=== PATIENT | female | born 1985 | race Hispanic/Latino ===

== ENCOUNTER 2021-05-28 15:30 | Inpatient (IN) | payer OTHER ==
[~2021-05-28 15:30] MED LIST: Bupivacaine/Epinephrine 0.25% 30 ML VIAL ONE
[2021-05-28] MEDS ORDERED: Promethazine HCl 25 MG/ML VIAL IM PRN ×2 (16:01→19:56)
[2021-05-28] MEDS ORDERED: Ondansetron PF 4 MG/2 ML Vial IVP PRN ×2 (16:01→19:56)
[2021-05-28] MEDS ORDERED: Misoprostol 200 MCG TAB PR PRN (16:01)
[2021-05-28] MEDS ORDERED: Ibuprofen 800 MG TAB PO PRN (16:01)
[2021-05-28] MEDS ORDERED: Diphenoxylate HCl/Atropine Tablet PO PRN (16:01)
[2021-05-28] MEDS ORDERED: Butorphanol Tartrate 1 MG/ML VIAL SLOW IVP PRN (16:01)
[2021-05-28] MEDS ORDERED: hydrALAZINE 20 MG/ML VIAL SLOW IVP PRN (16:01)
[2021-05-28] MEDS ORDERED: HYDROcodone/Acetaminophen 5/325 mg Tablet PO PRN (16:01)
[2021-05-28] MEDS ORDERED: Acetaminophen 500 MG TAB PO PRN (16:01)
[2021-05-28] MEDS ORDERED: Lidocaine 1% (PF) 30 ML VIAL SC PRN (16:01)
[2021-05-28] MEDS ORDERED: NS w/ Oxytocin 30 units 500 ML IV SCH ×2 (16:15)
[2021-05-28 16:16] VITALS: BMI 40.6
[2021-05-28 16:43] LABS: Creatinine, Urine 61.25 mg/dL (47-110)
[2021-05-28] MEDS: Lactated Ringer's 1,000 ML IV SCH (16:45)
[2021-05-28] MEDS: Magnesium Sulfate 20 gm/500 ml 20 GM/500 ML BAG ONE ×2 (17:02→17:03)
[2021-05-28 17:08] LABS: Hemoglobin 10.9 g/dL (12.0-15.5); Mean Corpuscular HGB CONC 32.5 g/dL (32.0-36.0); Mean Corpuscular Hemoglobin 26.9 pg (27.0-33.0); Mean Corpuscular Volume 82.7 fl (81.6-98.3); Mean Platelet Volume 9.3 fl (7.4-10.4); Platelet Count 341 10x3/uL (150-450); RBC Distribution Width 14.6 % (11.5-14.5); Red Blood Cell (RBC) Count 4.05 10x6/uL (3.90-5.03); White Blood Cell (WBC) Count 9.4 10x3/uL (3.5-10.5)
[2021-05-28 17:24] LABS: ALT (SGPT) 30 U/L (8-55); AST (SGOT) 26 U/L (5-34); Albumin 3.3 g/dL (3.5-5.0); Alkaline Phosphatase 121 U/L (40-110); Anion Gap 14 mmol/L (10-20); BUN (Urea Nitrogen) 6 mg/dL (7.0-18.7); Bilirubin, Total 0.3 mg/dL (0.2-1.2); Calc. Creatinine Clearance 223 mL/min (70-130); Calcium 9.5 mg/dL (7.8-10.44); Carbon Dioxide 22 mmol/L (22-29); Chloride 106 mmol/L (98-107); Globulin 2.6 g/dL (2.4-3.5); Glucose 117 mg/dL (70-105); Potassium 3.8 mmol/L (3.5-5.1); Protein, Total 5.9 g/dL (6.0-8.3); Sodium 138 mmol/L (136-145)
[2021-05-28 17:43] LABS: Hep B Surf Ag Non-Reactive S/CO (NonReactive)
[2021-05-28 17:44] LABS: Syphilis Antibody Nonreactive (Nonreactive); Syphilis Antibody Index 0.06 S/CO (<1.00 Non-Reactive)
[2021-05-28 18:01] LABS: HBSAg Index 0.15 S/CO (0-0.99)
[2021-05-28] MEDS ORDERED: Labetalol HCl 100 MG/20 ML VIAL ONE (19:21)
[2021-05-28] MEDS: Labetalol HCl 100 MG/20 ML VIAL SLOW IVP SCH (19:22)
[2021-05-28] MEDS ORDERED: Labetalol HCl 200 MG TAB PO SCH (19:45)
[2021-05-28] MEDS ORDERED: Fentanyl 2 mcg/Bup 0.1% Cadd 100 ML ONE (19:51)
[2021-05-28] MEDS ORDERED: ePHEDrine Sulfate 50 MG/10 ML VIAL SLOW IVP PRN (19:56)
[2021-05-28] MEDS ORDERED: Lactated Ringer's 500 ML IV PRN (19:56)
[2021-05-28] MEDS ORDERED: diphenhydrAMINE 50 MG/ML VIAL IVP PRN (19:56)
[2021-05-28] MEDS ORDERED: Acetaminophen 325 MG TAB PO PRN (19:56)
[2021-05-28] MEDS ORDERED: Naloxone HCl 0.4 mg/ml Vial IVP PRN ×2 (19:56)
[2021-05-28] MEDS ORDERED: Hydrocerin (Eucerin) Cream 120 gm Jar TOP PRN (19:56)
[2021-05-28] MEDS ORDERED: Communication Order-Pharmacy FS SCH (20:00)
[2021-05-28] MEDS ORDERED: Fentanyl 2 mcg/Bupivacaine 0.1% Cassette 100 ML EPIDURAL SCH (20:00)
[2021-05-29 00:27] LABS: SARS-CoV-2 PCR by NAA Not Detected (NotDetected)
[2021-05-29] MEDS ORDERED: Magnesium Sulfate 20 gm/500 ml 20 GM/500 ML BAG ONE (02:42)
[2021-05-29] MEDS ORDERED: Lidocaine 1% (PF) 30 ML VIAL ONE (03:41)
[2021-05-29] MEDS ORDERED: Methylergonovine 0.2 MG/ML VIAL ONE (03:50)
[2021-05-29] MEDS ORDERED: Carboprost 250 MCG/ML AMP ONE (03:50)
[2021-05-29] MEDS ORDERED: Misoprostol 200 MCG TAB ONE (03:50)
[2021-05-29] MEDS: Labetalol HCl 100 MG/20 ML VIAL SLOW IVP SCH (04:22)
[2021-05-29] MEDS ORDERED: Ondansetron PF 4 MG/2 ML Vial IVP PRN (04:35)
[2021-05-29] MEDS ORDERED: Bisacodyl 10 MG SUPP PR PRN (04:35)
[2021-05-29] MEDS ORDERED: Boostrix 0.5 ML (Tdap) VIAL IM ONE (04:35)
[2021-05-29] MEDS ORDERED: Promethazine HCl 25 MG/ML VIAL IM PRN (04:35)
[2021-05-29] MEDS ORDERED: diphenhydrAMINE 25 MG CAP PO PRN (04:35)
[2021-05-29] MEDS ORDERED: Milk Of Magnesia 30 ML UDCUP PO PRN (04:35)
[2021-05-29] MEDS ORDERED: Calcium Gluconate 4.6 MEQ in Sodium Chloride 0.9% 100 ML IVPB PRN (04:35)
[2021-05-29] MEDS ORDERED: Lanolin Ointment 7 GM TUBE TOP PRN (04:35)
[2021-05-29] MEDS ORDERED: Benzocaine-Menthol 82.5 ML CAN TOP PRN (04:35)
[2021-05-29] MEDS: Labetalol HCl 100 MG/20 ML VIAL SLOW IVP PRN ×2 (04:40→22:31)
[2021-05-29] MEDS ORDERED: Magnesium Sulfate 20 gm/500 ml 20 GM/500 ML BAG IVPB SCH (05:00)
[2021-05-29] MEDS ORDERED: NS w/ Oxytocin 30 units 500 ML IV SCH (05:00)
[2021-05-29 05:48] LABS: Magnesium 4.4 mg/dL (1.6-2.6)
[2021-05-29] MEDS: HYDROcodone/Acetaminophen 5/325 mg Tablet PO PRN ×2 (07:46→12:13)
[2021-05-29] MEDS: Ibuprofen 800 MG TAB PO SCH (07:47)
[2021-05-29] MEDS ORDERED: Losartan 25 MG TAB PO SCH (09:00)
[2021-05-29] MEDS ORDERED: Fentanyl 2 mcg/Bup 0.1% Cadd 0 ML ONE (17:06)
[2021-05-29] MEDS: hydrALAZINE 20 MG/ML VIAL SLOW IVP PRN ×2 (19:45→21:54)
[2021-05-30] MEDS: Lactated Ringer's 1,000 ML IV SCH (04:04)
[2021-05-30] MEDS: Ferrous Sulfate 325 MG TAB PO SCH ×2 (07:22→08:39)
[2021-05-30] MEDS: Ibuprofen 800 MG TAB PO SCH ×4 (07:22→21:23)
[2021-05-30] MEDS: Prenatal Vitamin 1 TAB PO SCH ×2 (07:23→08:46)
[2021-05-30] MEDS: Docusate 100 MG CAP PO SCH ×3 (07:23→21:23)
[2021-05-30] MEDS: Losartan Potassium 50 MG TAB PO SCH (08:46)
[2021-05-30] MEDS: hydrALAZINE 20 MG/ML VIAL SLOW IVP PRN ×2 (16:51→17:27)
[2021-05-30] MEDS ORDERED: Labetalol HCl 100 MG/20 ML VIAL SLOW IVP PRN (17:44)
[2021-05-31] MEDS: Ibuprofen 800 MG TAB PO SCH ×3 (05:27→22:31)
[2021-05-31] MEDS: Ferrous Sulfate 325 MG TAB PO SCH (07:35)
[2021-05-31] MEDS: Prenatal Vitamin 1 TAB PO SCH (07:58)
[2021-05-31] MEDS: Docusate 100 MG CAP PO SCH ×2 (07:58→22:31)
[2021-05-31] MEDS: Losartan Potassium 50 MG TAB PO SCH (07:59)
[2021-05-31] MEDS: hydrALAZINE 20 MG/ML VIAL SLOW IVP PRN ×3 (14:24→23:21)
[2021-05-31] MEDS ORDERED: NIFEdipine XL 30 MG TAB PO SCH (15:30)
[2021-05-31] MEDS: HYDROcodone/Acetaminophen 5/325 mg Tablet PO PRN (20:07)
[2021-06-01] MEDS ORDERED: Labetalol HCl 100 MG/20 ML VIAL SLOW IVP PRN (00:11)
[2021-06-01] MEDS ORDERED: Labetalol HCl 200 MG TAB PO SCH ×3 (00:15→21:00)
[2021-06-01] MEDS: Ibuprofen 800 MG TAB PO SCH ×2 (05:30→13:46)
[2021-06-01] MEDS: Losartan Potassium 50 MG TAB PO SCH (08:01)
[2021-06-01] MEDS: Docusate 100 MG CAP PO SCH (08:01)
[2021-06-01] MEDS: Prenatal Vitamin 1 TAB PO SCH (08:01)
[2021-06-01] MEDS: Ferrous Sulfate 325 MG TAB PO SCH ×2 (08:02→17:29)
[2021-06-01] MEDS ORDERED: NIFEdipine XL 30 MG TAB PO SCH ×2 (09:00→12:00)
[2021-06-01 15:17] VITALS: BP 144/79; TEMP 98.3
== END 2021-06-01 18:05 | disposition home or self-care (01) | DRG 807 ==
LOC: CSHLD/OP 15:30 → CSHLD 18:05 → CSHPED 05-30 10:15
PROVIDERS: ADMIT Family Medicine; ATTEND Family Medicine
PROC: 10907ZC Drainage of Amniotic Fluid, Therapeutic from Products of Conception, Via Natural or Artificial Opening (ICD-10-PCS; 2021-05-28)
PROC: 3E033VJ Introduction of Other Hormone into Peripheral Vein, Percutaneous Approach (ICD-10-PCS; 2021-05-28)
PROC: 10H07YZ Insertion of Other Device into Products of Conception, Via Natural or Artificial Opening (ICD-10-PCS; 2021-05-28)
PROC: 10E0XZZ Delivery of Products of Conception, External Approach (ICD-10-PCS; principal; 2021-05-29)
PROC: 0W8NXZZ Division of Female Perineum, External Approach (ICD-10-PCS; 2021-05-29)
DX: O13.4 Gestational [pregnancy-induced] hypertension without significant proteinuria, complicating childbirth (principal); Z37.0 Single live birth; Z20.822 Contact with and (suspected) exposure to COVID-19; O24.429 Gestational diabetes mellitus in childbirth, unspecified control; Z3A.37 37 weeks gestation of pregnancy; E66.9 Obesity, unspecified; O99.214 Obesity complicating childbirth; Z79.899 Other long term (current) drug therapy; O66.0 Obstructed labor due to shoulder dystocia
CPT/HCPCS: 36416; 76815; 76819; 80053; 82570; 83735; 84156; 85027; 86780; 86850; 86900; 86901; 87340; J0360; J3475; J7120; U0003; U0005